=== PATIENT | male | born 1960 | race Caucasian/White ===

== ENCOUNTER 2020-07-17 10:58 | Emergency (ER) | payer OTHER ==
[~2020-07-17] VITALS: Ht 172.7 cm; Wt 136.4 kg
[2020-07-17] MEDS ORDERED: eyedrops OU (11:04)
[2020-07-17 11:16] VITALS: BP 150/80
[2020-07-17 12:15] LABS: COVID AG,FIA SOURCE NASAL SWAB
[2020-07-20] MEDS ORDERED: TIMO5DRO7 OD (11:43)
[2020-07-20] MEDS ORDERED: ATRO2DRO OS (11:43)
[2020-07-20] MEDS ORDERED: LATA2.5D14 OU (11:43)
[2020-07-20] MEDS ORDERED: BRIM15DR8 OD (11:43)
[2020-07-20] MEDS ORDERED: DORZ10DR OD (11:43)
[2020-07-20] MEDS ORDERED: ACET500C51 PO (11:43)
[2020-07-20] MEDS ORDERED: PRED5DRO17 OS (11:43)
== END 2020-07-17 12:20 | disposition home or self-care (01) ==
LOC: EMS 10:58 → EDUNIT# 10:58 → EMS 12:20
DX: Z20.822 Contact with and (suspected) exposure to COVID-19 (principal)
CPT/HCPCS: 87426; 99283; C9803

== ENCOUNTER 2020-07-21 06:42 | Day surgery (SDC) | payer OTHER ==
[~2020-07-21] VITALS: Ht 172.7 cm; Wt 136.4 kg
[~2020-07-21 06:42] MED LIST: ACET500C51 PO; ATRO2DRO OS; BRIM15DR8 OD; CYCLOPENTOLATE HCL 1% 2 ML OPHTHALMIC SOLUTION ONE; DORZ10DR OD; KETOROLAC TROMETHAMINE 0.5% 5 ML OPHTHALMIC SOLUTION ONE; LATA2.5D14 OU; MOXIFLOXACIN HCL 0.5% 3 ML OPHTHALMIC SOLUTION ONE; PHENYLEPHRINE HCL 2.5% 2 ML OPHTHALMIC SOLUTION ONE; PRED5DRO17 OS; RINGERS SOLUTION,LACTATED 500 ML IV ONE; TETRACAINE HCL/PF 0.5% 4 ML OPHTHALMIC SOLUTION ONE; TIMO5DRO7 OD; TROPICAMIDE 1% 2 ML OPHTHALMIC SOLUTION ONE
[2020-07-21] MEDS ORDERED: FentaNYL CITRATE PF 100 MCG/2 ML VIAL IVP ONE (06:43)
[2020-07-21] MEDS ORDERED: MIDAZOLAM HCL 2 MG/2 ML VIAL IVP ONE (06:43)
[2020-07-21] MEDS ORDERED: POVIDONE-IODINE 10% 15 ML SOLUTION UD ONE ×2 (06:51→17:16)
[2020-07-21] MEDS: TETRACAINE HCL/PF 0.5% 4 ML OPHTHALMIC SOLUTION OD SCH ×3 (07:18→07:36)
[2020-07-21] MEDS: MOXIFLOXACIN HCL 0.5% 3 ML OPHTHALMIC SOLUTION OD SCH ×3 (07:19→07:37)
[2020-07-21] MEDS: PHENYLEPHRINE HCL 2.5% 2 ML OPHTHALMIC SOLUTION OD SCH ×3 (07:19→07:37)
[2020-07-21] MEDS: KETOROLAC TROMETHAMINE 0.5% 5 ML OPHTHALMIC SOLUTION OD SCH ×3 (07:19→07:37)
[2020-07-21] MEDS: CYCLOPENTOLATE HCL 1% 2 ML OPHTHALMIC SOLUTION OD SCH ×3 (07:19→07:37)
[2020-07-21] MEDS: TROPICAMIDE 1% 2 ML OPHTHALMIC SOLUTION OD SCH ×3 (07:19→07:37)
[2020-07-21] MEDS ORDERED: EPINEPHrine 1:1,000 [1 MG/ML] AMP ONE (17:16)
[2020-07-21] MEDS ORDERED: NEOMYCIN/POLYMYXIN B/DEXAMETH 3.5 GM OPHTHALMIC OINTMENT ONE (17:16)
[2020-07-21] MEDS ORDERED: BALANCED SALT 15 ML OPHTHALMIC IRRIG.SOLN ONE (17:16)
[2020-07-21] MEDS ORDERED: HYALURONATE SODIUM 12 MG/ML 0.8 ML SYRINGE IO ONE (17:16)
[2020-07-21] MEDS ORDERED: PrednisoLONE ACETATE 1% 5 ML OPHTHALMIC SUSPENSION ONE (17:16)
== END 2020-07-21 09:35 | disposition home or self-care (01) ==
LOC: SURGERY 06:42 → EDUNIT# 08:30 → SURGERY 09:35
PROVIDERS: ATTEND Ophthalmology
DX: H25.11 Age-related nuclear cataract, right eye (principal); F17.210 Nicotine dependence, cigarettes, uncomplicated; G47.30 Sleep apnea, unspecified; J45.909 Unspecified asthma, uncomplicated; I10 Essential (primary) hypertension; Z90.49 Acquired absence of other specified parts of digestive tract; H54.8 Legal blindness, as defined in USA; G47.33 Obstructive sleep apnea (adult) (pediatric); G89.29 Other chronic pain; M54.9 Dorsalgia, unspecified; Z98.890 Other specified postprocedural states; Z72.89 Other problems related to lifestyle; Z79.899 Other long term (current) drug therapy
CPT/HCPCS: 66984; 93005; J0171; J2250; J3010; J3490; J7120; V2632